=== PATIENT | male | born 1990 | race Caucasian/White ===

== ENCOUNTER 2017-09-20 03:05 | Emergency (ER) | payer SELFPAY ==
[~2017-09-20] VITALS: Ht 180.3 cm; Wt 90.7 kg
[2017-09-20 03:05] VITALS: BP 131/82
--- NOTE | 2017-09-20 03:52 | NUR ---
PT GF CAME TO PICK PATIENT UP, PT IS A/OX4 WALKING WITH A STEADY GAIT OUT OF ER, PT GF STATES SHE IS DRIVING HIM HOME
== END 2017-09-20 03:53 | disposition home or self-care (01) ==
LOC: ER 03:08
DX: F10.129 Alcohol abuse with intoxication, unspecified (principal)
CPT/HCPCS: A4606; Z7610